=== PATIENT | male | born 1950 | race Caucasian/White ===

== ENCOUNTER 2019-12-04 16:17 | Emergency (ER) | payer MEDICARE, OTHER ==
[2019-12-04 17:09] LABS: EOS # 0.5 (0.04-0.40); HEMATOCRIT 41.1 % (42.0-52.0); LYMPH# 1.4 (1.50-4.00); MEAN CELL VOLUME 90 fl (78-100); MEAN CORPUSCULAR HEMOGLOBIN 28 pg (27-31); MEAN CORPUSCULAR HGB CONC 32 g/dL (33-37); MEAN PLATELET VOLUME 10.1 fl (7.4-10.4); MONO # 0.7 (0.20-0.80); NEU # 7.3 (1.40-6.50); PLATELET COUNT 204 K/mm3 (130-400); RED BLOOD COUNT 4.59 M/mm3 (4.20-5.60); RED CELL DISTRIBUTION WIDTH 15.9 % (11.5-14.5); WHITE BLOOD COUNT 9.9 K/mm3 (4.8-10.8)
[2019-12-04 17:18] LABS: POTASSIUM 3.9 mmol/L (3.5-5.1); SODIUM 141 mmol/L (136-145)
[2019-12-04 17:19] LABS: CALCIUM 9.1 mg/dL (8.3-10.5)
[2019-12-04 17:20] LABS: GLUCOSE 93 mg/dL (75-110)
[2019-12-04 17:21] LABS: CARBON DIOXIDE 25 mmol/L (23-31)
[2019-12-04 17:22] LABS: TOTAL BILIRUBIN 0.4 mg/dL (0.2-1.2)
[2019-12-04 17:26] LABS: AST-SGOT 19 U/L (5-34)
[2019-12-04 17:27] LABS: ALT/SGPT 26 U/L (0-55); MAGNESIUM 1.88 mg/dL (1.60-2.60)
[2019-12-04 17:41] LABS: EOS % 5.2 % (0.0-4.0); TROPONIN-I < 0.03 ng/mL (<0.030)
[2019-12-04] MEDS ORDERED: ZITHROMAX 250M250 MG PO (18:06)
[2019-12-04] MEDS ORDERED: CEPHALEXIN500 M1 PO (18:06)
[2019-12-04 18:55] VITALS: BP 146/66
== END 2019-12-04 18:20 | disposition home or self-care (01) ==
LOC: ED 16:17
PROVIDERS: Nurse Practitioner Family
DX: L03.116 Cellulitis of left lower limb (principal); R60.0 Localized edema; U07.1 COVID-19; I10 Essential (primary) hypertension; Z88.2 Allergy status to sulfonamides

== ENCOUNTER 2019-12-12 15:15 | Emergency (ER) | payer MEDICARE, OTHER ==
[~2019-12-12] VITALS: Ht 180.3 cm; Wt 122.7 kg
[~2019-12-12 15:15] MED LIST changes: -AMBIEN5 M1 PO; -ASPIRIN E.C. 8181 MG; -B12 ACTIVE1000 MCG PO; -COZAAR 50MG50 MG/TAB PO; -DULOXETINE60 MG PO; -FLOMAX0.4 MG PO; -GABAPENTIN TAB600 MG PO; -HCTZ 25MG25 MG PO; -LATANOPROST 2.2.5 ML OU; -LEVO-T137 MCG PO; -LUMIFY2.5 ML OP; -MIRAPEX1 MG PO; -PROTONIX40 MG/Pack PO; -TOPROL XL 50MG50 MG PO; -VITAMIN D3 COM1 EACH PO; -VOLTAREN GEL1% TP; -WELLBUTRIN 75MG75 MG PO
[2019-12-12 15:47] VITALS: BP 143/79
[2019-12-12] MEDS ORDERED: GABAPENTIN TAB600 MG PO (15:56)
[2019-12-12] MEDS ORDERED: PROTONIX40 MG/Pack PO (15:56)
[2019-12-12] MEDS ORDERED: FLOMAX0.4 MG PO (15:56)
[2019-12-12] MEDS ORDERED: ASPIRIN E.C. 8181 MG (15:56)
[2019-12-12] MEDS ORDERED: LATANOPROST 2.2.5 ML OU (15:57)
[2019-12-12] MEDS ORDERED: WELLBUTRIN 75MG75 MG PO (15:58)
[2019-12-12] MEDS ORDERED: LUMIFY2.5 ML OP (15:58)
[2019-12-12] MEDS ORDERED: TOPROL XL 50MG50 MG PO (15:59)
[2019-12-12] MEDS ORDERED: HCTZ 25MG25 MG PO (15:59)
[2019-12-12] MEDS ORDERED: B12 ACTIVE1000 MCG PO (16:00)
[2019-12-12] MEDS ORDERED: VITAMIN D3 COM1 EACH PO (16:00)
[2019-12-12] MEDS ORDERED: AMBIEN5 M1 PO (16:01)
[2019-12-12] MEDS ORDERED: VOLTAREN GEL1% TP (16:03)
[2019-12-12] MEDS ORDERED: MIRAPEX1 MG PO (16:03)
[2019-12-12] MEDS ORDERED: LEVO-T137 MCG PO (16:05)
[2019-12-12] MEDS ORDERED: DULOXETINE60 MG PO (16:06)
[2019-12-12] MEDS ORDERED: COZAAR 50MG50 MG/TAB PO (16:10)
== END 2019-12-12 17:00 | disposition other institution (70) ==
LOC: ED 15:15
DX: M25.522 Pain in left elbow (principal)

== ENCOUNTER → 2019-12-12 | Outpatient (CLI) | payer MEDICARE ==
[~2019-12-12] MED LIST: AMBIEN5 M1 PO; ASPIRIN E.C. 8181 MG; B12 ACTIVE1000 MCG PO; CEPHALEXIN500 M1 PO; COZAAR 50MG50 MG/TAB PO; DULOXETINE60 MG PO; FLOMAX0.4 MG PO; GABAPENTIN TAB600 MG PO; HCTZ 25MG25 MG PO; LATANOPROST 2.2.5 ML OU; LEVO-T137 MCG PO; LUMIFY2.5 ML OP; MIRAPEX1 MG PO; PROTONIX40 MG/Pack PO; TOPROL XL 50MG50 MG PO; VITAMIN D3 COM1 EACH PO; VOLTAREN GEL1% TP; WELLBUTRIN 75MG75 MG PO; ZITHROMAX 250M250 MG PO
[2019-12-12 15:47] VITALS: BP 143/79
== END ==
LOC: RAD 18:38
DX: M79.81 Nontraumatic hematoma of soft tissue (principal)

== ENCOUNTER 2020-03-18 10:30 | Outpatient (RCR) | payer MEDICARE ==
[~2020-03-18 10:30] MED LIST changes: +AMBIEN5 M1 PO; +ASPIRIN E.C. 8181 MG; +B12 ACTIVE1000 MCG PO; +COZAAR 50MG50 MG/TAB PO; +DULOXETINE60 MG PO; +FLOMAX0.4 MG PO; +GABAPENTIN TAB600 MG PO; +HCTZ 25MG25 MG PO; +LATANOPROST 2.2.5 ML OU; +LEVO-T137 MCG PO; +LUMIFY2.5 ML OP; +MIRAPEX1 MG PO; +PROTONIX40 MG/Pack PO; +TOPROL XL 50MG50 MG PO; +VITAMIN D3 COM1 EACH PO; +VOLTAREN GEL1% TP; +WELLBUTRIN 75MG75 MG PO
== END 2020-03-18 11:00 | disposition home or self-care (01) ==
LOC: OT 10:30
DX: Z98.890 Other specified postprocedural states (principal)